=== PATIENT | male | born 1990 | race Caucasian/White ===

== ENCOUNTER 2019-05-06 08:27 | Emergency (ER) | payer SELFPAY ==
--- NOTE | 2019-05-06 09:34 | ULT ---
BILATERAL TESTICULAR ULTRASOUND WITH GRAYSCALE, COLOR-FLOW AND SPECTRAL DOPPLER IMAGING: HISTORY: 28-year-old male with testicular pain FINDINGS: The right testis measures 4.7 x 2.9 x 2.4 cm in the left testis measures 4.5 x 2.5 x 2.4 cm. No testi cular mass or microlithiasis is seen. Symmetric flow is noted to both testes. Bilateral hydroceles are present. The right hydrocele is large in the left hydrocele is small. The right epididymis is not visualized. The left epididymis measures 6 x 11 mm. Flow is demonstrated to the left epididymis. There is a 5 mm solid area in the left epididymis which does not demonstrate vascular flow. IMPRESSION: 1. No evidence of testicular mass or torsion. 2. Bilateral hydroceles, right larger than left. 3. Solid nodule in the left epididymis of uncertain etiology.
== END 2019-05-06 09:40 | disposition home or self-care (01) ==
LOC: SCSER 08:27
DX: N43.3 Hydrocele, unspecified (principal); F17.220 Nicotine dependence, chewing tobacco, uncomplicated
CPT/HCPCS: 76870; 93976

== ENCOUNTER 2019-09-12 12:04 | Emergency (ER) | payer SELFPAY ==
[2019-09-12 12:48] LABS: Bilirubin Negative (Negative); Blood, Urine Negative (Negative); Clarity Cloudy (Clear); Glucose, Urine (Dipstick) Negative (Negative); Leukocyte Negative (Negative); Nitrite Negative (Negative); Protein, Urine (Dipstick) Negative (Neg-Trace); Urobilinogen 0.2 mg/dL (Less than 2)
[2019-09-12 12:50] LABS: #Basophils 0.1 thou/uL (0.0-0.2); #Eosinphils 0.1 thou/uL (0.0-0.7); #Lymphocytes 2.9 thou/uL (1.20-3.40); #Monocytes 0.6 thou/uL (0.11-0.59); #Neutrophils 3.5 thou/uL (1.40-6.50); %Basophils 1.6 % (0.0-1.0); %Eosinophils 1.5 % (0.0-10.0); %Lymphocytes 40.5 % (21.0-51.0); %Monocytes 8.8 % (0.0-10.0); %Neutrophils 47.6 % (42.0-75.0); Hemoglobin 15.3 g/dL (14.0-18.0); Mean Corpuscular HGB CONC 32.6 g/dL (32.0-36.0); Mean Corpuscular Hemoglobin 29.7 pg (27.0-31.0); Mean Corpuscular Volume 91.1 fL (78.0-98.0); Mean Platelet Volume 8.5 fL (7.4-10.4); Platelet Count 240 thou/uL (130-400); RBC Distribution Width 11.4 % (11.5-14.5); Red Blood Cell (RBC) Count 5.15 mill/uL (4.70-6.10); White Blood Cell (WBC) Count 7.3 thou/uL (4.8-10.8)
[2019-09-12 13:05] LABS: ALT (SGPT) 21 U/L (8-55); AST (SGOT) 21 U/L (5-34); Albumin 4.9 g/dL (3.5-5.0); Alkaline Phosphatase 60 U/L (40-110); Anion Gap 14 mmol/L (10-20); BUN (Urea Nitrogen) 14 mg/dL (8.9-20.6); Bilirubin, Total 1.2 mg/dL (0.2-1.2); Calc. Creatinine Clearance 0 mL/min (70-130); Calcium 9.8 mg/dL (7.8-10.44); Carbon Dioxide 28 mmol/L (22-29); Chloride 103 mmol/L (98-107); Estimated GFR-MDRD 79; Globulin 2.6 g/dL (2.4-3.5); Glucose 100 mg/dL (70-105); Potassium 3.5 mmol/L (3.5-5.1); Protein, Total 7.5 g/dL (6.0-8.3); Sodium 141 mmol/L (136-145)
--- NOTE | 2019-09-12 14:07 | ULT ---
SCROTAL ULTRASOUND WITH DOPPLER: 09/12/2019 PROVIDED CLINICAL HISTORY: Right testicular pain. COMPARISON: 05/06/2019 FINDINGS: The right testicle measures about 4.3 x 3 x 2.8 cm and demonstrates a normal waite-scale sonographic a ppearance. The right epididymis appears unremarkable. The appendix testis is re-demonstrated. There i s a large complex right hydrocele. The left testicle measures about 4.4 x 2.8 x 2.9 cm and demonstrates an unremarkable waite-scale sonog raphic appearance. An appendix testis is demonstrated. There is a large complex left hydrocele with a n associated 5 mm scrotolith. Color Doppler and spectral analysis of the testicular wave-forms demonstrates normal flow bilaterally . IMPRESSION: 1. Flow is demonstrated to each testicle. 2. Bilateral complex hydroceles appearing similar to prior. 3. Left-sided scrotolith is demonstrated on the current study. POS: [facility]
[2019-09-12] MEDS ORDERED: Ketorolac Tromethamine 60 MG/2 ML VIAL ONE (14:45)
[2019-09-15 02:59] LABS: Chlam.trachomatis by PCR,Urine Not Detected (NotDetected)
== END 2019-09-12 15:14 | disposition home or self-care (01) ==
LOC: SCSER 12:04
DX: N43.3 Hydrocele, unspecified (principal); F17.220 Nicotine dependence, chewing tobacco, uncomplicated
CPT/HCPCS: 36415; 76870; 80053; 81003; 85025; 87491; 87591; 93976; 96372; J1885